=== PATIENT | female | born 1965 | race Caucasian/White ===

== ENCOUNTER 2024-03-17 20:24 | Emergency (ER) | payer MEDICAID ==
[~2024-03-17] VITALS: Ht 170.2 cm; Wt 123.7 kg
[~2024-03-17 20:24] MED LIST: ASPI-1497 PO; ATOR80TA PO; EXEN2PEN SQ; FENO40TA4 MT; INSU100I24 SQ; INSU100V34 SQ; LISI20TA31 PO
[2024-03-17 20:29] VITALS: O2SAT 100
[2024-03-17 21:11] VITALS: BP 144/84; PULSE 105; RESP 16; O2SAT 98
[2024-03-18] MEDS ORDERED: NAPR-1176 MT (00:41)
[2024-03-18] MEDS ORDERED: LIDO700A15 TP (00:41)
[2024-03-18 02:45] VITALS: TEMP 98.6
[2024-03-18] MEDS: ACETAMINOPHEN 500MG TABLET PO ONE (02:45)
== END 2024-03-18 02:43 | disposition home or self-care (01) ==
LOC: ER 20:24
DX: S90.31XA Contusion of right foot, initial encounter (principal); E11.9 Type 2 diabetes mellitus without complications; E78.00 Pure hypercholesterolemia, unspecified; I10 Essential (primary) hypertension; Z79.899 Other long term (current) drug therapy; X58.XXXA Exposure to other specified factors, initial encounter; Y93.89 Activity, other specified; Y92.89 Other specified places as the place of occurrence of the external cause; Y99.8 Other external cause status
CPT/HCPCS: 73630; 99283